=== PATIENT | male | born 1945 | race Caucasian/White ===

== ENCOUNTER 2018-01-24 13:12 | Emergency (ER) | payer OTHER ==
--- NOTE | 2018-01-24 13:15 | PDOC ---
History of Present Illness - General Chief Complaint: Edema Stated Complaint: KEISHA DVT Time Seen by Provider: 01/24/18 13:14 History Source: Patient Exam Limitations: No Limitations - History of Present Illness Initial Comments: 01/24/18 13:21 72y M hx of HTN presents with + RUE DVT on outpatient US. The patient has been ahving a slight pain in the R upper arm for the past 3 weeks, it resolved, but then came back a few days later. The pain is worse when he touches it, but it is not painful when he moves his arm. no recent trauma, extended travel, exogenous travel use, recent surgires. pt denies any cp, sob, palpitations, hemoptysis, gutierrez, leg swelling or calf pain. no prior history of DVTs. no history of melena, bpr, GIB. Pt does endorse a complaint of sneezing/coughing intermittently for the past few weeks itnermittently productive of greenish sputum, but deenis associated fever/chills, sob, gutierrez, hemopytysis. pt did have a trip to [place] in november (approx 4-6 weeks prior to onset of his symptoms), but was asymptomatic for ~ month prior to onset of his pain. PMD: Dr. Bentley no family or personal hx of dvt no recent surgeries/prcoedures Past History - Past Medical History Allergies/Adverse Reactions: Allergies Allergy/AdvReac Type Severity Reaction Status Date / Time iodine Allergy Verified 01/24/18 13:13 shellfish derived Allergy Verified 01/24/18 13:13 valsartan [From Diovan] Allergy Unverified 08/01/12 12:08 Review of Systems - Review of Systems Able to Perform ROS?: Yes Comments:: 01/24/18 13:47 CONSTITUTIONAL: No reported: Fever, Chills, Diaphoresis, Generalized Weakness, Malaise, Loss of Appetite HEENT: No reported: Rhinorrhea, Nasal Congestion, Throat Pain, Throat Swelling, Difficulty Swallowing, Mouth Swelling, Ear Pain, Eye Pain, Visual Changes CARDIOVASCULAR: No reported: Chest Pain, Syncope, Palpitations, Irregular Heart Rate, Lightheadedness, Peripheral Edema RESPIRATORY: +Cough, sneezing No reported: Shortness of Breath, SOB with Exertion, Orthopnea, Wheezing, Stridor, Hemoptysis GASTROINTESTINAL: No reported: Abdominal pain, Abdominal Distension, Nausea, Vomiting, Diarrhea, Constipation, Melena, Hematochezia GENITOURINARY: No reported: Dysuria, Frequency, Urgency, Hesitancy, Flank Pain, Genital Pain MUSCULOSKELETAL: +R arm swelling/pain No reported: Myalgia, Arthralgia, Joint Swelling, Back pain, Neck Pain SKIN: No reported: Rash, Itching, Pallor HEMEATOLOGIC/IMMUNOLOGIC: No reported: Easy Bleeding, Easy Bruising, Lymphadenopathy, Frequent infections ENDOCRINE: No reported: Unexplained Weight Gain, Unexplained Weight Loss, Heat Intolerance , Cold Intolerance NEUROLOGIC: No reported: Headache, Focal Weakness, Paresthesias, Vertigo, Lightheadedness, Unsteady Gait, Seizure, Mental Status Changes, Incontinence PSYCHIATRIC: No reported: Anxiety, Depression *Physical Exam - Physical Exam Comments: 01/24/18 13:49 GENERAL: The patient is awake, alert, and fully oriented, Nontoxic - in no acute distress. HEAD: Normocephalic, atraumatic. EYES: extraocular movements intact, sclera anicteric, conjunctiva clear. ENT: Normal voice, Moist mucous membranes. NECK: Normal range of motion, supple LUNGS: Breath sounds equal, clear to auscultation bilaterally. No wheezes, no rhonchi, no rales. HEART: Regular rate and rhythm, without murmur, rub or gallop. ABDOMEN: Soft, nontender, No guarding, no rebound.No CVA tenderness EXTREMITIES: mild edema to RUE, pulses symetirc, sensation symmetric, mild tendernses to R elbow to soft tissue, normal ROM including elbow extension/ flexion/spuination/pronation. no LE swelling, neg homans sign b/l, no calf tenderness b/l NEUROLOGICAL: No facial assymetry, Normal speech, PSYCH: Normal mood, normal affect. SKIN: Warm, Dry, normal turgor, ED Treatment Course - LABORATORY CBC & Chemistry Diagram: 01/24/18 13:58 01/24/18 13:58 Medical Decision Making - Medical Decision Making 01/24/18 13:50 +outpatient DVT on RUE will ck labs to confirm stable/nl renal function anticipate eliquis pt ahs some sneezing/coughing w/o cp/sob/gutierrez/hemoptysis - suspect viral syndrome , doubt PE - will obtain ekg to screen for signs of right heart strain. 01/24/18 14:[address] bentley agree with management if renal function normal can start xerolto, withoutpatient pmd and heme fu 01/24/18 15:09 labs reviewed, no anemia, renal fysfunction no risk for GIB or other bleeding diathesis 01/24/18 15:26 will start the patient on eliquis bleeding risks discussed will dc with pmd and heme fu return precautions discussed I discussed the physical exam findings, ancillary test results and final diagnoses with the patient. I answered all of the patient's questions. The patient was satisfied with the care received and felt comfortable with the discharge plan and treatment plan. The patient will call their primary care physician within 24 hours to arrange follow-up and will return to the Emergency Department with any new, persistent or worsening symptoms. *DC/Admit/Observation/Transfer Diagnosis at time of Disposition: Deep vein thrombophlebitis of arm - Discharge Dispostion Disposition: HOME Condition at time of disposition: Stable Decision to Admit order: No - Referrals Referrals: Lucero Deal MD [Staff Physician] - Tesha Barksdale MD [Staff Physician] - - Patient Instructions Printed Discharge Instructions: DI for Deep Vein Thrombosis Additional Instructions: Continue taking the medications as prescribed. Follow up with dr. Bentley within the next 2 days and with hematology within 3- 4 days for further evaluation of why you developed a deep vein thrombosis. Return immediately if you have any bleeding inculding rectal bleeding, black stool, severe headache, chest pain, shortness of breath, coughing blood, or other concerns. Print Language: CHADIAN - Post Discharge Activity
[2018-01-24 13:25] VITALS: BP 147/93; PULSE 97; TEMP 98.7; BMI 35.2
[2018-01-24 14:28] LABS: ALBUMIN 4.2 g/dl (3.5-5.0); ALK PHOS 49 U/L (32-92); ANION GAP 4 MMOL/L (8-16); BASO % 0.8 % (0-2.0); BILIRUBIN,TOTAL 0.7 mg/dl (0.2-1.0); BLOOD UREA NITROGEN 18 mg/dl (7-18); CALCIUM 9.3 mg/dl (8.4-10.2); CHLORIDE 104 mmol/L (98-107); CO2 26 mmol/L (22-28); CREATININE 0.9 mg/dl (0.6-1.3); EOS % 2.8 % (0-4.5); GLUCOSE,RANDOM 126 mg/dl (74-106); HEMATOCRIT 45.6 % (35.4-49); HEMOGLOBIN 15.4 GM/dl (11.7-16.9); LYMPH % 16.8 % (8-40); MCH 28.6 pg (25.7-33.7); MCHC 33.7 g/dl (32.0-35.9); MEAN CELL VOLUME 84.9 fl (80-96); MEAN PLT VOLUME 10.1 fl (7.5-11.1); MONO % 8.4 % (3.8-10.2); NEUT % 71.2 % (42.8-82.8); PLATELET COUNT 266 K/MM3 (134-434); POTASSIUM 3.4 mmol/L (3.5-5.1); RBC 5.37 M/mm3 (4.00-5.60); RDW 13.4 % (11.9-15.9); SGOT/AST 36 U/L (10-42); SGPT/ALT 34 U/L (10-40); SODIUM 134 mmol/L (136-145); TOT PROT 7.3 g/dl (6.4-8.3); WHITE BLOOD COUNT 8.6 K/mm3 (4.0-10.8)
[2018-01-24 14:53] LABS: INR 1.09 (0.82-1.09); PROTHROMBIN TIME (PATIENT) 12.2 SEC (10.2-13.0)
[2018-01-24] MEDS ORDERED: APIXABAN 5 MG TABLET PO ONE (15:31)
--- NOTE | 2018-01-25 09:57 | EKG ---
Test Reason : Blood Pressure : / mmHG Vent. Rate : 072 BPM Atrial Rate : 072 BPM P-R Int : 190 ms QRS Dur : 136 ms QT Int : 430 ms P-R-T Axes : 041 054 013 degrees QTc Int : 470 ms NORMAL SINUS RHYTHM RIGHT BUNDLE BRANCH BLOCK ABNORMAL ECG NO PREVIOUS ECGS AVAILABLE Confirmed by TOO PADILLA, CHARIS ([id number]) on 01/25/2018 9:57:14 AM Referred By: MAYRA MOSS Confirmed By:CHARIS GAGE MD
== END 2018-01-24 15:50 | disposition home or self-care (01) ==
LOC: FER 13:12
DX: I80.8 Phlebitis and thrombophlebitis of other sites (principal); R06.7 Sneezing
CPT/HCPCS: 36415; 80053; 85025; 85302; 85305; 85306; 85610; 93005; 99281-25

== ENCOUNTER 2020-03-14 10:06 | Emergency (ER) | payer OTHER | END 2020-03-14 11:26 | disposition home or self-care (01) | LOC: JVIRT 10:06 | DX: Z03.818 Encounter for observation for suspected exposure to other biological agents ruled out (principal) | CPT/HCPCS: C9803; G2012-GT; U0003 ==